=== PATIENT | female | born 1985 | race African-American/Black ===

== ENCOUNTER 2018-12-10 21:52 | Emergency (ER) | payer OTHER, MEDICAID ==
[~2018-12-10] VITALS: Ht 165.1 cm; Wt 59.0 kg
[2018-12-11 04:46] LABS: CLARITY URINE CLEAR (CLEAR); COLOR URINE YELLOW (YELLOW); KETONES URINE 1+ (NEGATIVE); LEUKOCYTE ESTERASE URINE NEGATIVE (NEGATIVE); NITRITE URINE NEGATIVE (NEGATIVE); OCCULT BLOOD URINE NEGATIVE (NEGATIVE); PH URINE 5.5 (4.5-8.0); PROTEIN URINE NEGATIVE (NEGATIVE); SPECIFIC GRAVITY URINE 1.021 (1.005-1.030); UROBILINOGEN URINE 0.2 E.U./dL (0.2-1.0)
[2018-12-11 05:58] VITALS: BP 108/70
== END 2018-12-11 06:00 | disposition home or self-care (01) ==
LOC: ER 21:52
DX: K02.9 Dental caries, unspecified (principal); N76.0 Acute vaginitis; J06.9 Acute upper respiratory infection, unspecified
CPT/HCPCS: 81003; 87210; 99283; Z7610; 87491; 87591

== ENCOUNTER 2021-12-06 10:04 | Emergency (ER) | payer MEDICAID ==
[~2021-12-06] VITALS: Ht 165.1 cm; Wt 63.0 kg
[2021-12-06 10:09] VITALS: BP 119/74
[2021-12-06] MEDS ORDERED: MOM PO (10:14)
[2021-12-06] MEDS ORDERED: METOCLOPRAMIDE HCL 10MG/2ML VIAL IV STA (10:34)
[2021-12-06] MEDS ORDERED: MAGNESIUM/ALUMINUM HYDROXIDE/SIMETHICONE 30ML UDC PO STA (10:34)
[2021-12-06 14:15] LABS: HEMATOCRIT. 40.1 % (36.0-48.0); HEMOGLOBIN. 13.1 g/dL (12.0-16.0); MEAN CORPUSCULAR HEMOGLOBIN 27.2 pg (28.0-32.0); MEAN CORPUSCULAR VOLUME 83.2 fL (81.0-99.0); MEAN PLATELET VOLUME 7.5 fl (7.4-10.4); PLATELET 297 x1000/uL (130-400); RED BLOOD CELL COUNT 4.82 mill/uL (4.2-5.4); RED CELL DISTRIBUTION WIDTH 15.6 % (11.6-14.6)
[2021-12-06 14:20] LABS: CHLORIDE 110 mEq/L (98-107)
[2021-12-06] MEDS ORDERED: FAMOTIDINE 20MG/2ML VIAL IV ONE (15:00)
[2021-12-06] MEDS ORDERED: ONDANSETRON HCL 4MG/2ML INJ IV ONE (15:00)
[2021-12-06 15:29] LABS: PLATELET ESTIMATE NORMAL
[2021-12-06 15:35] LABS: CLARITY URINE CLOUDY (CLEAR); COLOR URINE DARK YELLOW (YELLOW); PH URINE 5.5 (4.5-8.0)
[2021-12-06 15:36] LABS: KETONES URINE 2+ (NEGATIVE); NITRITE URINE NEGATIVE (NEGATIVE); OCCULT BLOOD URINE TRACE (NEGATIVE); PROTEIN URINE 2+ (NEGATIVE)
[2021-12-06 15:37] LABS: LEUKOCYTE ESTERASE URINE NEGATIVE (NEGATIVE); UROBILINOGEN URINE 0.2 E.U./dL (0.2-1.0)
[2021-12-06 15:48] LABS: UCG SCREEN NEGATIVE
[2021-12-06] MEDS ORDERED: POTASSIUM CHLORIDE 20MEQ TABLET SR PO ONE (16:30)
[2021-12-06] MEDS ORDERED: ONDA4TAB5 MT (16:36)
[2021-12-06] MEDS ORDERED: MAG355OR21 MT (16:36)
[2021-12-06] MEDS ORDERED: FAMO40TA7 MT (16:36)
== END 2021-12-06 17:04 | disposition home or self-care (01) ==
LOC: ER 10:04
DX: A08.4 Viral intestinal infection, unspecified (principal); E87.6 Hypokalemia
CPT/HCPCS: 36415; 71045; 80053; 81003; 81025; 83690; 83880; 84132; 84484; 85025; 93005; 96374; 96375; 99285; J2405; J2765; J3490